=== PATIENT | male | born 1960 | race Two or more races ===

== ENCOUNTER → 2024-11-21 | Outpatient (CLI) | payer BC, SELFPAY ==
--- NOTE | 2024-11-21 15:32 | XR_ITS ---
Examination: Lumbar spine 3 views Technique one AP lateral coned lateral lower lumbar spine 3 views Exam date and time: November 21, 2024 1539 hrs. Indications: Back pain beginning one week ago. Findings: Moderate osteopenia Lumbar levoscoliosis 10 degrees No lumbar fracture Diffuse lumbar disc narrowing, moderate to advanced at the lower 3 lumbar levels No spondylolisthesis Moderate lumbar spondylosis Impression: Diffuse lumbar degenerative disc disease, moderate to advanced at the lower 3 lumbar levels
== END | disposition home or self-care (01) ==
LOC: CDIM 15:29
PROVIDERS: PCP Nurse Practitioner Family; Referring Provider Nurse Practitioner Family; Visit Provider Nurse Practitioner Family
DX: M51.369 Other intervertebral disc degeneration, lumbar region without mention of lumbar back pain or lower extremity pain (principal)
CPT/HCPCS: 72100

== ENCOUNTER → 2025-01-13 | Outpatient (CLI) | payer BC, SELFPAY ==
--- NOTE | 2025-01-13 12:00 | XR_ITS ---
Examination: MRI lumbar spine without contrast Date and time of exam: January 13, 2025 1150 hrs. Indications: Onset low back pain 6 weeks Technique: Multiple MRI axial and sagittal sections lumbar spine. Sagittal T2-weighted images, TR 3500, TE 118 T1 weighted transverse sections, TR 688 T8.5, T2-weighted sagittal sections T1 weighted sagittal sections TR 621, TE 30 T2 axial sections, TR 4, 190, TE 84. Findings: Adequate alignment lumbar vertebral bodies on the lateral view Advanced disc narrowing L3-L4 Diffuse lumbar disc desiccation No spondylolisthesis L5-S1 8 mm central paracentral disc bulge displacing both S1 nerve roots L4-L5 4 mm central lumbar disc bulge L3-L4 severe spinal stenosis, 8 mm left paracentral disc bulge facet arthropathy and thickening of ligamenta flava with mild right L3 ganglionic compression L2-L3 no disc protrusion L1-L2 no disc protrusion Impression: Advanced degenerative disc disease L3-L4 L5-S1 8 mm central paracentral disc bulge displacing both S1 nerve roots L4-L5 4 mm central lumbar disc bulge L3-L4 severe spinal stenosis, 8 mm left paracentral disc bulge facet arthropathy and thickening of ligamenta flava circumferentially narrowing the thecal sac with mild right L3 ganglionic compression
== END | disposition home or self-care (01) ==
LOC: SMRI 11:10
PROVIDERS: PCP Nurse Practitioner Family; Referring Provider Nurse Practitioner Family; Visit Provider Nurse Practitioner Family
DX: M51.369 Other intervertebral disc degeneration, lumbar region without mention of lumbar back pain or lower extremity pain (principal); M51.379 Other intervertebral disc degeneration, lumbosacral region without mention of lumbar back pain or lower extremity pain; M48.061 Spinal stenosis, lumbar region without neurogenic claudication; G95.20 Unspecified cord compression
CPT/HCPCS: 72148